=== PATIENT | female | born 1980 | race Caucasian/White ===

== ENCOUNTER 2020-01-09 13:02 | Emergency (ER) | payer OTHER ==
[~2020-01-09] VITALS: Ht 165.1 cm; Wt 54.4 kg
[~2020-01-09 13:02] MED LIST: BIRTH CONTROL; DULO30 PO; TRAZ50 PO
[2020-01-09] MEDS ORDERED: Diflucan150 MG PO (14:11)
[2020-01-09] MEDS ORDERED: Flagyl500 MG PO (14:19)
== END 2020-01-09 14:28 | disposition home or self-care (01) ==
LOC: ER 13:02
DX: N76.0 Acute vaginitis (principal); B96.89 Other specified bacterial agents as the cause of diseases classified elsewhere; B37.3 Candidiasis of vulva and vagina; F32.3 Major depressive disorder, single episode, severe with psychotic features; F17.200 Nicotine dependence, unspecified, uncomplicated; Z88.5 Allergy status to narcotic agent; Z88.0 Allergy status to penicillin; Z88.6 Allergy status to analgesic agent; Z88.8 Allergy status to other drugs, medicaments and biological substances; Z79.899 Other long term (current) drug therapy
CPT/HCPCS: 99283